=== PATIENT | female | born 1965 | race American Indian/Alaskan Native ===

== ENCOUNTER 2016-07-29 09:50 | Emergency (ER) | payer MEDICARE ==
[2016-07-29 10:34] LABS: Basophils % (Auto) 0.3 % (0.0-1.8); Eosinophils % (Auto) 0.4 % (0.0-4.3); Hematocrit 38.2 % (30.3-42.9); Hemoglobin 12.6 gm/dl (10.1-14.3); Mean Corpuscular HGB Conc 33 % (30-34); Mean Corpuscular Hemoglobin 28 pg (28-32); Mean Corpuscular Volume 85 fl (79-97); Platelet Count 175 K/mm3 (140-440); Red Blood Count 4.49 M/mm3 (3.65-5.03); Red Cell Distribution Width 13.1 % (13.2-15.2)
[2016-07-29 10:50] LABS: Chloride 93.7 mmol/L (98-107)
[2016-07-29 10:59] LABS: Potassium 2.9 mmol/L (3.6-5.0)
[2016-07-29] MEDS ORDERED: K-DUR PO ONE (12:16)
--- NOTE | 2016-07-29 12:17 | Emergency Department Report ---
ED General Adult HPI - General Chief complaint: Nausea/Vomiting/Diarrhea Stated complaint: STOMACH VIRUS Time Seen by Provider: 07/29/16 12:05 Source: patient, family, old records reviewed Mode of arrival: Ambulatory Limitations: Other (patient has a past medical history of mental health problems , schizophrenia, tardive dyskinesia. She is minimally verbal at baseline as per caregiver.) - History of Present Illness Initial comments: This is a 51-year-old female. She is previously unknown to me. Past medical history includes glaucoma, schizophrenia, bipolar disorder, renal insufficiency , chronic hypokalemia. Primary care doctor is Dr. iLen Mandujano. Patient is brought to the hospital by caregiver for evaluation of intermittent diarrhea. Diarrhea is described as brownish. Had it for 3 days, resolved one day, took Imodium, and then yesterday had 2 episodes of diarrhea. Patient has no vomiting, no abdominal pain, no lethargy or irritability. She is eating and drinking as much as she typically eats and drinks. There is no change in behavior. No recent antibiotic use. -: Gradual Consistency: intermittent Improves with: medication Worsens with: none Associated Symptoms: denies: confusion, cough, diaphoresis, fever/chills, loss of appetite, weakness - Related Data Previous Rx's Medication Instructions Recorded Last Taken Type Aspirin EC [Aspirin Enteric Coated 81 mg PO QDAY #30 tablet 11/30/15 Unknown Rx TAB] Calcium Carbonate/Vitamin D3 1 each PO DAILY #30 tablet 11/30/15 Unknown Rx [Os-Michael 500-Vit D3 600 Caplet] Donepezil [Aricept] 5 mg PO QDAY #30 tablet 11/30/15 Unknown Rx FLUoxetine [PROzac] 20 mg PO QDAY #30 capsule 11/30/15 Unknown Rx Ketotifen Fumarate [Allergy Eye 1 drop OP BID #1 drops 11/30/15 Unknown Rx Drops 0.025%] Loratadine [Claritin] 10 mg PO DAILY #30 tablet 11/30/15 Unknown Rx Metolazone [Zaroxolyn] 5 mg PO QDAY #30 tablet 11/30/15 Unknown Rx Olanzapine [ZyPREXA] 20 mg PO QDAY #30 tablet 11/30/15 Unknown Rx Olopatadine HCl [Patanol 0.1%] 1 drop OP BID #1 drops 11/30/15 Unknown Rx Potassium Chloride [K-Dur] 20 meq PO QDAY #30 tablet 11/30/15 Unknown Rx Sodium Bicarbonate 650 mg PO BID #60 tablet 11/30/15 Unknown Rx chlorproMAZINE [Thorazine] 20 mg PO DAILY #30 tablet 11/30/15 Unknown Rx clonazePAM 2 mg PO QHS #30 tablet 11/30/15 Unknown Rx Allergies Allergy/AdvReac Type Severity Reaction Status Date / Time fluphenazine Allergy Hives Verified 08/18/13 14:27 ED Review of Systems ROS: Stated complaint: STOMACH VIRUS Other details as noted in HPI Constitutional: denies: fever Eyes: denies: vision change ENT: denies: epistaxis Respiratory: denies: cough Cardiovascular: dyspnea on exertion Gastrointestinal: diarrhea Genitourinary: as per HPI Musculoskeletal: as per HPI Skin: as per HPI Neurological: as per HPI Psychiatric: as per HPI Hematological/Lymphatic: as per HPI ED Past Medical Hx - Past Medical History Previous Medical History?: Yes Hx Hypertension: Yes Hx Renal Disease: Yes Hx Psychiatric Treatment: Yes (Dementia) Additional medical history: schizophrenia; tardive dyskinesia; - Surgical History Additional Surgical History: Unknown - Social History Smoking Status: Never Smoker Substance Use Type: Prescribed - Medications Home Medications: Home Medications Medication Instructions Recorded Confirmed Last Taken Type Aspirin EC [Aspirin Enteric Coated 81 mg PO QDAY #30 tablet 11/30/15 07/29/16 Unknown Rx TAB] Calcium Carbonate/Vitamin D3 1 each PO DAILY #30 tablet 11/30/15 07/29/16 Unknown Rx [Os-Michael 500-Vit D3 600 Caplet] Donepezil [Aricept] 5 mg PO QDAY #30 tablet 11/30/15 07/29/16 Unknown Rx FLUoxetine [PROzac] 20 mg PO QDAY #30 capsule 11/30/15 07/29/16 Unknown Rx Ketotifen Fumarate [Allergy Eye 1 drop OP BID #1 drops 11/30/15 07/29/16 Unknown Rx Drops 0.025%] Loratadine [Claritin] 10 mg PO DAILY #30 tablet 11/30/15 07/29/16 Unknown Rx Metolazone [Zaroxolyn] 5 mg PO QDAY #30 tablet 11/30/15 07/29/16 Unknown Rx Olanzapine [ZyPREXA] 20 mg PO QDAY #30 tablet 11/30/15 07/29/16 Unknown Rx Olopatadine HCl [Patanol 0.1%] 1 drop OP BID #1 drops 11/30/15 07/29/16 Unknown Rx Potassium Chloride [K-Dur] 20 meq PO QDAY #30 tablet 11/30/15 07/29/16 Unknown Rx Sodium Bicarbonate 650 mg PO BID #60 tablet 11/30/15 07/29/16 Unknown Rx chlorproMAZINE [Thorazine] 20 mg PO DAILY #30 tablet 11/30/15 07/29/16 Unknown Rx clonazePAM 2 mg PO QHS #30 tablet 11/30/15 07/29/16 Unknown Rx ED Physical Exam - General Limitations: Other (chronic psychiatric disease) General appearance: alert, in no apparent distress - Head Head exam: Present: atraumatic, normocephalic - Eye Eye exam: Present: normal appearance - ENT ENT exam: Present: normal exam, normal orophraynx, mucous membranes moist, normal external ear exam - Neck Neck exam: Present: normal inspection, full ROM. Absent: tenderness, meningismus - Respiratory Respiratory exam: Present: normal lung sounds bilaterally. Absent: respiratory distress, wheezes, rales, rhonchi, stridor, chest wall tenderness - Cardiovascular Cardiovascular Exam: Present: regular rate, normal rhythm, normal heart sounds. Absent: bradycardia, tachycardia, irregular rhythm, systolic murmur, diastolic murmur, rubs, gallop - GI/Abdominal GI/Abdominal exam: Present: soft, normal bowel sounds. Absent: distended, tenderness, guarding, rebound, rigid, pulsatile mass - Rectal Rectal exam: Present: normal inspection, normal rectal tone, heme (-) stool, other (during rectal examination, escorted by caregiver from facility.) - Extremities Exam Extremities exam: Present: normal inspection, full ROM, normal capillary refill. Absent: tenderness, pedal edema, joint swelling, calf tenderness - Back Exam Back exam: Present: normal inspection, full ROM. Absent: tenderness, CVA tenderness (R), CVA tenderness (L), muscle spasm, paraspinal tenderness, vertebral tenderness - Neurological Exam Neurological exam: Present: alert, other (Extraocular movements intact. Tongue midline. No facial droop. Facial sensation intact to light touch in the V1, V2 , V3 distribution bilaterally. 5 and 5 strength in 4 extremities.. Sensation is intact to light touch in 4 extremities.). Absent: motor sensory deficit - Psychiatric Psychiatric exam: Present: normal affect, normal mood - Skin Skin exam: Present: warm, dry, intact, normal color. Absent: rash ED Course Vital Signs 07/29/16 07/29/16 07/29/16 10:02 11:31 11:40 Temperature 98.1 F Pulse Rate 79 66 76 Respiratory 20 17 11 L Rate Blood Pressure 126/73 113/63 O2 Sat by Pulse 100 Oximetry 07/29/16 07/29/16 07/29/16 11:45 11:50 12:00 Temperature Pulse Rate 78 79 Respiratory 18 18 12 Rate Blood Pressure 117/63 117/71 O2 Sat by Pulse 99 Oximetry 07/29/16 07/29/16 07/29/16 12:10 12:20 12:30 Temperature Pulse Rate 78 79 71 Respiratory 15 11 L 11 L Rate Blood Pressure 117/71 117/71 117/71 O2 Sat by Pulse Oximetry 07/29/16 07/29/16 07/29/16 12:40 12:50 13:00 Temperature Pulse Rate 78 76 77 Respiratory 11 L 14 10 L Rate Blood Pressure 117/71 117/71 117/71 O2 Sat by Pulse Oximetry 07/29/16 07/29/16 07/29/16 13:10 14:23 14:31 Temperature 98.4 F Pulse Rate 77 72 Respiratory 13 18 Rate Blood Pressure 117/71 114/66 O2 Sat by Pulse 99 Oximetry - Reevaluation(s) Reevaluation #1: 07/29/16 14:18 Differential diagnosis: Chronic hypokalemia, electrolyte derangement, urinary tract infection, nonspecific diarrhea Assessment and plan: 51-year-old female with reported history of intermittent diarrhea. She is afebrile with reassuring vital signs, I have personally witnessed the patient to be eating and drinking without difficulty, urinalysis does not suggest UTI, she was already on outpatient potassium supplementation, clinically appears well, brown stool that is guaiac negative. Patient has been observed in the ER for a prolonged Of time. I don't believe she requires advanced imaging at this time. Given that I have not witnessed the patient to have any loose stools or diarrhea while in the department, I don' t believe she requires antibiotic therapy, and I would not prescribe antimotility therapy either. Patient is orally taking potassium supplementation. She can continue her current outpatient medications, and follow up expectantly with her primary care doctor. She was given oral potassium repletion in the ER. ED Medical Decision Making - Lab Data Result diagrams: 07/29/16 10:16 07/29/16 10:16 Vital Signs 07/29/16 10:02 Temperature 98.1 F Pulse Rate 79 Respiratory 20 Rate Blood Pressure 126/73 O2 Sat by Pulse 100 Oximetry Labs 07/29/16 07/29/16 07/29/16 10:16 10:16 10:16 WBC 4.0 L RBC 4.49 Hgb 12.6 Hct 38.2 MCV 85 MCH 28 MCHC 33 RDW 13.1 L Plt Count 175 Lymph % (Auto) 42.1 H [place] % (Auto) 6.9 Eos % (Auto) 0.4 Baso % (Auto) 0.3 Lymph # 1.7 [place] # 0.3 Eos # 0.0 Baso # 0.0 Seg Neutrophils % 50.3 Seg Neutrophils # 2.0 Sodium 139 Potassium 2.9 L* Chloride 93.7 L Carbon Dioxide 31 H Anion Gap 17 BUN 18 H Creatinine 1.2 Estimated GFR 57 BUN/Creatinine Ratio 15.00 Glucose 103 H Calcium 9.0 Magnesium 2.0 Urine Color Urine Turbidity Urine pH Ur Specific [place] Urine Protein Urine Glucose (UA) Urine Ketones Urine Blood Urine Nitrite Urine Bilirubin Urine Urobilinogen Ur Leukocyte Esterase Urine WBC (Auto) Urine RBC (Auto) U Epithel Cells (Auto) Urine Bacteria (Auto) Urine Mucus 07/29/16 Unknown WBC RBC Hgb Hct MCV MCH MCHC RDW Plt Count Lymph % (Auto) [place] % (Auto) Eos % (Auto) Baso % (Auto) Lymph # [place] # Eos # Baso # Seg Neutrophils % Seg Neutrophils # Sodium Potassium Chloride Carbon Dioxide Anion Gap BUN Creatinine Estimated GFR BUN/Creatinine Ratio Glucose Calcium Magnesium Urine Color Yellow Urine Turbidity Clear Urine pH 6.0 Ur Specific [place] 1.011 Urine Protein <15 mg/dl Urine Glucose (UA) Neg Urine Ketones Neg Urine Blood Neg Urine Nitrite Neg Urine Bilirubin Neg Urine Urobilinogen < 2.0 Ur Leukocyte Esterase Neg Urine WBC (Auto) < 1.0 Urine RBC (Auto) 4.0 U Epithel Cells (Auto) < 1.0 Urine Bacteria (Auto) 1+ Urine Mucus Few Critical care attestation.: If time is entered above; I have spent that time in minutes in the direct care of this critically ill patient, excluding procedure time. ED Disposition Clinical Impression: Hypokalemia Disposition: DISCHARGED TO HOME OR SELFCARE Is pt being admited?: No Does the pt Need Aspirin: No Condition: Stable Additional Instructions: current outpatient medications. Potassium was noted to be slightly decreased. Follow up with a primary care doctor for this within the next 3-5 days. Return to the ER right away with fevers or chills, lethargy, irritability , projectile vomiting, change in mental status, inability to tolerate liquid feeds. Referrals: LIEN ANDERSON MD [Primary Care Provider] - 3-5 Days Forms: Work/School Release Form(ED)
[2016-07-29 13:48] LABS: Bacteria,Urine 1+ /HPF (Negative); Bilirubin,Urine NEG (Negative); Blood,Urine NEG (Negative); Ketones,Urine NEG (Negative); Leukocyte Esterase,Urine NEG (Negative); Mucus,Urine FEW /HPF; Nitrite,Urine NEG (Negative); Protein,Urine <15 mg/dL mg/dL (Negative); Urobilinogen,Urine < 2.0 mg/dL (<2.0); WBC,Urine < 1.0 /HPF (0.0-6.0)
[2016-07-29 14:32] VITALS: BP 114/66
== END 2016-07-29 14:35 | disposition home or self-care (01) ==
LOC: ED 09:50
DX: E87.6 Hypokalemia (principal); I10 Essential (primary) hypertension; F03.90 Unspecified dementia, unspecified severity, without behavioral disturbance, psychotic disturbance, mood disturbance, and anxiety; F20.9 Schizophrenia, unspecified; Z79.82 Long term (current) use of aspirin; Z88.8 Allergy status to other drugs, medicaments and biological substances
CPT/HCPCS: 36415; 80048; 81001; 82962; 83735; 85025; 87086; 99283

== ENCOUNTER 2017-10-25 13:30 | Emergency (ER) | payer MEDICARE ==
[2017-10-25 14:12] VITALS: BP 113/69
--- NOTE | 2017-10-25 14:44 | Emergency Department Report ---
ED Allergic Reaction HPI - General Chief complaint: Head Injury Stated complaint: HEAD INJURY Time Seen by Provider: 10/25/17 14:38 Source: patient Mode of arrival: Ambulatory Limitations: No Limitations - Related Data Previous Rx's Medication Instructions Recorded Last Taken Type Aspirin EC [Aspirin Enteric Coated 81 mg PO QDAY #30 tablet 11/30/15 Unknown Rx TAB] Calcium Carbonate/Vitamin D3 1 each PO DAILY #30 tablet 11/30/15 Unknown Rx [Os-Michael 500-Vit D3 600 Caplet] Donepezil [Aricept] 5 mg PO QDAY #30 tablet 11/30/15 Unknown Rx FLUoxetine [PROzac] 20 mg PO QDAY #30 capsule 11/30/15 Unknown Rx Ketotifen Fumarate [Allergy Eye 1 drop OP BID #1 drops 11/30/15 Unknown Rx Drops 0.025%] Loratadine [Claritin] 10 mg PO DAILY #30 tablet 11/30/15 Unknown Rx Metolazone [Zaroxolyn] 5 mg PO QDAY #30 tablet 11/30/15 Unknown Rx Olanzapine [ZyPREXA] 20 mg PO QDAY #30 tablet 11/30/15 Unknown Rx Olopatadine HCl [Patanol 0.1%] 1 drop OP BID #1 drops 11/30/15 Unknown Rx Potassium Chloride [K-Dur] 20 meq PO QDAY #30 tablet 11/30/15 Unknown Rx Sodium Bicarbonate 650 mg PO BID #60 tablet 11/30/15 Unknown Rx chlorproMAZINE [Thorazine] 20 mg PO DAILY #30 tablet 11/30/15 Unknown Rx clonazePAM 2 mg PO QHS #30 tablet 11/30/15 Unknown Rx Allergies Allergy/AdvReac Type Severity Reaction Status Date / Time fluphenazine Allergy Hives Verified 08/18/13 14:27 ED Review of Systems ROS: Stated complaint: HEAD INJURY Other details as noted in HPI ED Past Medical Hx - Past Medical History Previous Medical History?: Yes Hx Hypertension: Yes Hx Renal Disease: Yes Hx Psychiatric Treatment: Yes (Dementia) Additional medical history: schizophrenia; tardive dyskinesia; - Surgical History Additional Surgical History: Unknown - Social History Smoking Status: Never Smoker Substance Use Type: Prescribed - Medications Home Medications: Home Medications Medication Instructions Recorded Confirmed Last Taken Type Aspirin EC [Aspirin Enteric Coated 81 mg PO QDAY #30 tablet 11/30/15 07/29/16 Unknown Rx TAB] Calcium Carbonate/Vitamin D3 1 each PO DAILY #30 tablet 11/30/15 07/29/16 Unknown Rx [Os-Michael 500-Vit D3 600 Caplet] Donepezil [Aricept] 5 mg PO QDAY #30 tablet 11/30/15 07/29/16 Unknown Rx FLUoxetine [PROzac] 20 mg PO QDAY #30 capsule 11/30/15 07/29/16 Unknown Rx Ketotifen Fumarate [Allergy Eye 1 drop OP BID #1 drops 11/30/15 07/29/16 Unknown Rx Drops 0.025%] Loratadine [Claritin] 10 mg PO DAILY #30 tablet 11/30/15 07/29/16 Unknown Rx Metolazone [Zaroxolyn] 5 mg PO QDAY #30 tablet 11/30/15 07/29/16 Unknown Rx Olanzapine [ZyPREXA] 20 mg PO QDAY #30 tablet 11/30/15 07/29/16 Unknown Rx Olopatadine HCl [Patanol 0.1%] 1 drop OP BID #1 drops 11/30/15 07/29/16 Unknown Rx Potassium Chloride [K-Dur] 20 meq PO QDAY #30 tablet 11/30/15 07/29/16 Unknown Rx Sodium Bicarbonate 650 mg PO BID #60 tablet 11/30/15 07/29/16 Unknown Rx chlorproMAZINE [Thorazine] 20 mg PO DAILY #30 tablet 11/30/15 07/29/16 Unknown Rx clonazePAM 2 mg PO QHS #30 tablet 11/30/15 07/29/16 Unknown Rx ED Physical Exam - General Limitations: No Limitations ED Course Vital Signs 10/25/17 14:08 Temperature 97.4 F L Pulse Rate 56 L Respiratory 18 Rate Blood Pressure 113/69 O2 Sat by Pulse 100 Oximetry Critical care attestation.: If time is entered above; I have spent that time in minutes in the direct care of this critically ill patient, excluding procedure time. ED Disposition Condition: Stable
--- NOTE | 2017-10-25 14:45 | Emergency Department Report ---
Blank Doc - Documentation Documentation: Patient is a 52-year-old -[place] male who has a past medical history of early-onset dementia who was was having a behavior issue at the place that she lives and she tripped and fell and hit her head. There was no known loss of consciousness. There is a small laceration present in the right parietal region. Patient will have a CT head done to rule out intracranial bleed and the laceration will be repaired.
--- NOTE | 2017-10-25 15:08 | Cat Scan Report ---
CT HEAD WITHOUT CONTRAST: HISTORY: Head injury. TECHNIQUE: Sequential 2.5mm CT images. COMPARISON: none. FINDINGS: Cerebral Parenchyma: Within normal limits. Cerebellum: Within normal limits. Brainstem: Within normal limits. Ventricles: Normal. Sella: Normal. Extra-axial spaces: Normal. Basal Cisterns: Normal. Intracranial Hemorrhage: None. Midline Shift: None. Calvarium: Normal. Sinuses: Normal. Mastoid Air Cells: Normal. Visualized Orbits: Normal. IMPRESSION: Cranial CT scan within normal limits.
--- NOTE | 2017-10-25 15:42 | Emergency Department Report ---
ED Head Injury/Laceration HPI - HPI Occurred When: Today Location: Parietal Pain: Mild Tetanus Status: Up to Date Symptoms: Loss of Consciousness: No, Nausea: No, Blurred Vision: No, Unusual Behavior: No, Headache: No, Swelling: No, Bruising: No, Break in Skin: Yes, Bleeding: Yes Other History: Patient is a 52-year-old -[place] male who has a past medical history of early-onset dementia who was was having a behavior issue at the place that she lives and she tripped and fell and hit her head. There was no known loss of consciousness. There is a small laceration present in the right parietal region. Patient will have a CT head done to rule out intracranial bleed and the laceration will be repaired. ED General PMH - Social History Smoking Status: Never Smoker ED Review of Systems ROS: Stated complaint: HEAD INJURY Other details as noted in HPI Comment: All other systems reviewed and negative Head Inj w/lac Physical Exam - Exam General: Vital signs noted. No distress. Alert and acting appropriately. Adult Head Front + Back: 1 - 1.5 cm laceration Head: Yes PERRL, No Hemotympanum, No Hematoma/Ecchymosis, No Epistaxis, No Stepoff/Deformity, No Abrasion, No Foreign Body Chest, Abd, & Ext: Yes Clear Lung Sounds, Yes Regular Heart Rhythm, No Neck Pain , No Chest Injury/Pain, No Heart Murmur, No Abdominal Tenderness, No Back Tenderness, No Extremity Injury Neuroligical (Head Inj W/O Lac: Yes Normal Speech, Yes Normal Gait, No Lethargy , No Disorientation, No Focal Numbness, No Focal Weakness - Laceration /Wound Repair Right Head Wound Length (cm): 2 Wound's Depth, Shape: superficial Wound Explored: clean Irrigated w/ Saline (ccs): 200 Betadine Prep?: Yes Anesthesia: 1% Lidocaine Wound Repaired With: sutures Number of Sutures: 4 Layer Closure?: No Progress: 4 FAHEEM placed ED Disposition Clinical Impression: Closed head injury Qualifiers: Encounter type: initial encounter Qualified Code(s): S09.90XA - Unspecified injury of head, initial encounter Scalp laceration Qualifiers: Encounter type: initial encounter Qualified Code(s): S01.01XA - Laceration without foreign body of scalp, initial encounter Disposition: TO HOME OR SELFCARE Is pt being admited?: No Does the pt Need Aspirin: No Condition: Stable Instructions: Laceration (ED), Suture Care (ED) Referrals: PRIMARY CARE,MD [Primary Care Provider] - 3-5 Days
== END 2017-10-25 15:52 | disposition home or self-care (01) ==
LOC: ED 13:30
DX: S01.01XA Laceration without foreign body of scalp, initial encounter (principal); W01.0XXA Fall on same level from slipping, tripping and stumbling without subsequent striking against object, initial encounter; Y93.89 Activity, other specified; Y92.89 Other specified places as the place of occurrence of the external cause; Y99.8 Other external cause status
CPT/HCPCS: 70450; 99283

== ENCOUNTER 2017-11-01 11:19 | Emergency (ER) | payer MEDICARE ==
--- NOTE | 2017-11-01 11:53 | Emergency Department Report ---
ED General Adult HPI - General Chief complaint: Fall Stated complaint: FALL Time Seen by Provider: 11/01/17 11:42 Source: patient, family Mode of arrival: Wheelchair Limitations: Physical Limitation - History of Present Illness Initial comments: Patient is 52 years old female lived in a [facility], presented by [facility] electrical inspector for evaluation of difficulty walking after a fall 3 days ago. Patient was seen here in the ER on October [address] scan did not show anything acute. They stated that she is not walking as supposed to. They stated that she will walk when she want especially they told that she is going to [facility]. Patient is not communicating due to her dementia and tardive dyskinesia. - Related Data Previous Rx's Medication Instructions Recorded Last Taken Type Aspirin EC [Aspirin Enteric Coated 81 mg PO QDAY #30 tablet 11/30/15 Unknown Rx TAB] Calcium Carbonate/Vitamin D3 1 each PO DAILY #30 tablet 11/30/15 Unknown Rx [Os-Michael 500-Vit D3 600 Caplet] Donepezil [Aricept] 5 mg PO QDAY #30 tablet 11/30/15 Unknown Rx FLUoxetine [PROzac] 20 mg PO QDAY #30 capsule 11/30/15 Unknown Rx Ketotifen Fumarate [Allergy Eye 1 drop OP BID #1 drops 11/30/15 Unknown Rx Drops 0.025%] Loratadine [Claritin] 10 mg PO DAILY #30 tablet 11/30/15 Unknown Rx Metolazone [Zaroxolyn] 5 mg PO QDAY #30 tablet 11/30/15 Unknown Rx Olanzapine [ZyPREXA] 20 mg PO QDAY #30 tablet 11/30/15 Unknown Rx Olopatadine HCl [Patanol 0.1%] 1 drop OP BID #1 drops 11/30/15 Unknown Rx Potassium Chloride [K-Dur] 20 meq PO QDAY #30 tablet 11/30/15 Unknown Rx Sodium Bicarbonate 650 mg PO BID #60 tablet 11/30/15 Unknown Rx chlorproMAZINE [Thorazine] 20 mg PO DAILY #30 tablet 11/30/15 Unknown Rx clonazePAM 2 mg PO QHS #30 tablet 11/30/15 Unknown Rx Allergies Allergy/AdvReac Type Severity Reaction Status Date / Time fluphenazine Allergy Hives Verified 08/18/13 14:27 ED Review of Systems ROS: Stated complaint: FALL Other details as noted in HPI Comment: Unobtainable due to pts medical conditions ED Past Medical Hx - Past Medical History Previous Medical History?: Yes Hx Hypertension: Yes Hx Renal Disease: Yes Hx Psychiatric Treatment: Yes (Dementia) Additional medical history: schizophrenia; tardive dyskinesia; - Surgical History Additional Surgical History: Unknown - Social History Smoking Status: Never Smoker Substance Use Type: Prescribed - Medications Home Medications: Home Medications Medication Instructions Recorded Confirmed Last Taken Type Aspirin EC [Aspirin Enteric Coated 81 mg PO QDAY #30 tablet 11/30/15 07/29/16 Unknown Rx TAB] Calcium Carbonate/Vitamin D3 1 each PO DAILY #30 tablet 11/30/15 07/29/16 Unknown Rx [Os-Michael 500-Vit D3 600 Caplet] Donepezil [Aricept] 5 mg PO QDAY #30 tablet 11/30/15 07/29/16 Unknown Rx FLUoxetine [PROzac] 20 mg PO QDAY #30 capsule 11/30/15 07/29/16 Unknown Rx Ketotifen Fumarate [Allergy Eye 1 drop OP BID #1 drops 11/30/15 07/29/16 Unknown Rx Drops 0.025%] Loratadine [Claritin] 10 mg PO DAILY #30 tablet 11/30/15 07/29/16 Unknown Rx Metolazone [Zaroxolyn] 5 mg PO QDAY #30 tablet 11/30/15 07/29/16 Unknown Rx Olanzapine [ZyPREXA] 20 mg PO QDAY #30 tablet 11/30/15 07/29/16 Unknown Rx Olopatadine HCl [Patanol 0.1%] 1 drop OP BID #1 drops 11/30/15 07/29/16 Unknown Rx Potassium Chloride [K-Dur] 20 meq PO QDAY #30 tablet 11/30/15 07/29/16 Unknown Rx Sodium Bicarbonate 650 mg PO BID #60 tablet 11/30/15 07/29/16 Unknown Rx chlorproMAZINE [Thorazine] 20 mg PO DAILY #30 tablet 11/30/15 07/29/16 Unknown Rx clonazePAM 2 mg PO QHS #30 tablet 11/30/15 07/29/16 Unknown Rx ED Physical Exam - General Limitations: Physical Limitation General appearance: alert, in no apparent distress, other (patient is walking properly during physical exam) - Head Head exam: Present: atraumatic, normocephalic, normal inspection - ENT ENT exam: Present: normal exam - Neck Neck exam: Present: normal inspection, full ROM. Absent: tenderness, meningismus, lymphadenopathy, thyromegaly - Respiratory Respiratory exam: Present: normal lung sounds bilaterally - Cardiovascular Cardiovascular Exam: Present: regular rate, normal heart sounds - GI/Abdominal GI/Abdominal exam: Present: soft. Absent: distended, tenderness, guarding, rebound - Extremities Exam Extremities exam: Present: normal inspection - Back Exam Back exam: Present: normal inspection, full ROM. Absent: CVA tenderness (L) - Neurological Exam Neurological exam: Present: alert - Skin Skin exam: Present: warm, intact ED Course Vital Signs 11/01/17 11:23 Temperature 97.4 F L Pulse Rate 90 Respiratory 16 Rate Blood Pressure 87/49 O2 Sat by Pulse 96 Oximetry ED Medical Decision Making - Radiology Data Radiology results: report reviewed Bilateral hip x-ray is unremarkable. Critical care attestation.: If time is entered above; I have spent that time in minutes in the direct care of this critically ill patient, excluding procedure time. ED Disposition Clinical Impression: Hip pain Disposition: TO HOME OR SELFCARE Is pt being admited?: No Condition: Stable Instructions: Arthralgia (ED) Referrals: BJORN ANDERSON MD [Primary Care Provider] - 3-5 Days
[2017-11-01 14:44] VITALS: BP 88/50
--- NOTE | 2017-11-02 12:50 | XRay Report ---
Bilateral hips and pelvis: History: Hip pain. Findings: No bony or articular abnormality. No fracture or dislocation. No soft tissue calcification. No fracture lytic lesion or pelvis. Impression: Essentially negative right and left hip and pelvis
== END 2017-11-01 14:43 | disposition home or self-care (01) ==
LOC: ED 11:19
DX: M25.559 Pain in unspecified hip (principal)
CPT/HCPCS: 73521

== ENCOUNTER 2017-11-08 18:30 | Emergency (ER) | payer MEDICARE ==
--- NOTE | 2017-11-08 22:26 | Emergency Department Report ---
Suture/Staple Removal - [facility] Chief Complaint: Laceration/Recheck/Suture Stated Complaint: STITCH REMOVAL Time Seen by Provider: 11/08/17 22:18 When Sutures or Annetta Placed: 8-10 Days Ago Wound Location: here for staple removal from scalp. 11/01/2017 at this hospital ED Review of Systems ROS: Stated complaint: STITCH REMOVAL Other details as noted in HPI Constitutional: denies: chills, fever Respiratory: denies: cough, shortness of breath, wheezing Cardiovascular: denies: chest pain Gastrointestinal: denies: nausea Musculoskeletal: denies: back pain, arthralgia Skin: other (4 annetta to scalp). denies: rash, lesions Neurological: denies: headache, weakness ED Past Medical Hx - Past Medical History Previous Medical History?: Yes Hx Hypertension: Yes Hx Renal Disease: Yes Hx Psychiatric Treatment: Yes (Dementia) Hx Dementia: Yes Additional medical history: schizophrenia; tardive dyskinesia; - Surgical History Past Surgical History?: No - Family History Family history: diabetes, hypertension - Social History Smoking Status: Never Smoker Substance Use Type: Prescribed - Medications Home Medications: Home Medications Medication Instructions Recorded Confirmed Last Taken Type Aspirin EC [Aspirin Enteric Coated 81 mg PO QDAY #30 tablet 11/30/15 07/29/16 Unknown Rx TAB] Calcium Carbonate/Vitamin D3 1 each PO DAILY #30 tablet 11/30/15 07/29/16 Unknown Rx [Os-Michael 500-Vit D3 600 Caplet] Donepezil [Aricept] 5 mg PO QDAY #30 tablet 11/30/15 07/29/16 Unknown Rx FLUoxetine [PROzac] 20 mg PO QDAY #30 capsule 11/30/15 07/29/16 Unknown Rx Ketotifen Fumarate [Allergy Eye 1 drop OP BID #1 drops 11/30/15 07/29/16 Unknown Rx Drops 0.025%] Loratadine [Claritin] 10 mg PO DAILY #30 tablet 11/30/15 07/29/16 Unknown Rx Metolazone [Zaroxolyn] 5 mg PO QDAY #30 tablet 11/30/15 07/29/16 Unknown Rx Olanzapine [ZyPREXA] 20 mg PO QDAY #30 tablet 11/30/15 07/29/16 Unknown Rx Olopatadine HCl [Patanol 0.1%] 1 drop OP BID #1 drops 11/30/15 07/29/16 Unknown Rx Potassium Chloride [K-Dur] 20 meq PO QDAY #30 tablet 11/30/15 07/29/16 Unknown Rx Sodium Bicarbonate 650 mg PO BID #60 tablet 11/30/15 07/29/16 Unknown Rx chlorproMAZINE [Thorazine] 20 mg PO DAILY #30 tablet 11/30/15 07/29/16 Unknown Rx clonazePAM 2 mg PO QHS #30 tablet 11/30/15 07/29/16 Unknown Rx Naproxen [Naprosyn] 500 mg PO BID #14 tablet 11/01/17 Unknown Rx Suture Removal Exam - Exam General: Vital signs noted. No distress. Alert and acting appropriately. 52-year-old female well-nourished well-developed in no acute distress. Wound: Yes Tenderness (mild tenderness around states site.), No Pathologic Erythema, No Drainage, No Pus, No Wound Dehiscence Other Systems: All other systems reviewed and are unremarkable. Head is normocephalic. ED Course Vital Signs 11/08/17 18:38 Temperature 97.5 F L Pulse Rate 90 Respiratory 20 Rate Blood Pressure 113/77 O2 Sat by Pulse 100 Oximetry - Reevaluation(s) Reevaluation #1: 11/08/17 22:26 Or annetta removed from scalp, right parietal. Wound edges well approximated and appears healed. No induration or fluctuance. ED Recheck MDM - Medical Decision Making ED course: 52-year-old patient brought to the hospital by caregiver to have annetta removed that was less than 11/01/2017. Regular physician the patient's primary care and primary care refused to take annetta also she had come to emergency room. Denies any problems. Patient is stable. Other vital signs are stable I saw patient and examine areas were annetta are placed and they are intact and patient has no sign of infection. Annetta were removed and the wound is well approximated with no dehiscence. Patient tolerated procedure well .this was done under sterile procedure. A/P 1: Encounter for staple removal-this was done under sterile procedure and 4 annetta removed from parietal scalp. Wound cleanse and left open to air. Caregiver instructed to follow up with primary care physician in 2-3 days. Caregiver voiced understanding and discharge information and if wound starts to show signs of infection such as redness, swelling, drainage, patient developed fever or change in mentation to return to hospital otherwise follow-up with primary care. Patient discharged from emergency room with caregiver in stable condition. 1 Critical care attestation.: If time is entered above; I have spent that time in minutes in the direct care of this critically ill patient, excluding procedure time. ED Disposition Clinical Impression: Encounter for staple removal Disposition: DC-01 TO HOME OR SELFCARE Is pt being admited?: No Does the pt Need Aspirin: No Condition: Stable Instructions: Laceration (ED) Additional Instructions: Please keep affected area clean and dry Follow-up with primary care physician in 2-3 days to return to the emergency room if, she developed fever, chills, wound drainage, wound dehiscence, redness and swelling around wound and/or change in mentation. Referrals: PRIMARY CARE, [Primary Care Provider] - 2-3 Days Forms: Accompanied Note
[2017-11-08 22:39] VITALS: BP 142/79
== END 2017-11-08 22:37 | disposition home or self-care (01) ==
LOC: ED 18:30
DX: S01.81XD Laceration without foreign body of other part of head, subsequent encounter (principal); W45.8XXD Other foreign body or object entering through skin, subsequent encounter; I10 Essential (primary) hypertension; F03.90 Unspecified dementia, unspecified severity, without behavioral disturbance, psychotic disturbance, mood disturbance, and anxiety; Z79.82 Long term (current) use of aspirin